=== PATIENT | male | born 1985 | race Hispanic/Latino ===

== ENCOUNTER 2019-05-20 11:59 | Emergency (ER) | payer BC, OTHER ==
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
[2019-05-20 13:07] VITALS: BP 148/86; TEMP 97.5; O2SAT 98
== END 2019-05-20 12:56 | disposition home or self-care (01) ==
LOC: ER 11:59
DX: S50.11XA Contusion of right forearm, initial encounter (principal); X58.XXXA Exposure to other specified factors, initial encounter; Y93.89 Activity, other specified; Y92.89 Other specified places as the place of occurrence of the external cause
CPT/HCPCS: 99281